=== PATIENT | female | born 1965 ===

== ENCOUNTER 2017-07-28 11:30 | Emergency (ER) | payer OTHER, SELFPAY ==
[2017-07-28 11:55] VITALS: PULSE 95
--- NOTE | 2017-07-28 12:05 | C.PDOC ---
History Of Present Illness 52 y/o female with past medical history of Arthritis ( joints, shoulder , wrist ) presents to the ED complaining of left shoulder pain, rated 10/10, since 2 days. Denies fever or any further medical complaints. PMD: Angy Rangel MD Time Seen by Provider: 07/28/17 11:56 Chief Complaint (Nursing): Upper Extremity Problem/Injury History Per: Patient History/Exam Limitations: no limitations Onset/Duration Of Symptoms: Days (x2 days) Pain Scale Rating Of: 10 Past Medical History Reviewed: Historical Data, Nursing Documentation, Vital Signs Vital Signs: Last Vital Signs Temp 97.4 F L 07/28/17 12:13 Pulse 95 H 07/28/17 12:13 Resp 14 07/28/17 12:13 BP 102/68 07/28/17 12:13 Pulse Ox 96 07/28/17 12:13 Family History: States: Unknown Family Hx - Social History Hx Tobacco Use: No Hx Alcohol Use: No Hx Substance Use: No Review Of Systems Except As Marked, All Systems Reviewed And Found Negative. (As per HPI, otherwise negative) Constitutional: Negative for: Fever Musculoskeletal: Positive for: Shoulder Pain (Left shoulder pain) Physical Exam - Physical Exam Appears: Well, No Acute Distress Skin: Normal Color, Warm, Dry Head: Atraumatic, Normacephalic Nose: Normal Neck: Normal, Supple Cardiovascular: Rhythm Regular, No Murmur Respiratory: Normal Breath Sounds, No Accessory Muscle Use Gastrointestinal/Abdominal: Normal Exam, Soft Back: Normal Inspection Extremity: Other (Pain with movement of left shoulder but no erythema noted) Neurological/Psych: Normal Speech ED Course And Treatment O2 Sat by Pulse Oximetry: 99 (RA) Pulse Ox Interpretation: Normal Medical Decision Making Medical Decision Making: Time: 12:03 Initial Impression: Shoulder pain Plan: Tylenol 975mg PO Prednisone 60mg PO Scribe Attestation: Documented by Irving Deal acting as a scribe for Perry Aly MD. Scribe Attestation: All medical record entries made by the Scribe were at my direction and personally dictated by me. I have reviewed the chart and agree that the record accurately reflects my personal performance of the history, physical exam, medical decision making, and the department course for this patient. I have also personally directed, reviewed, and agree with the discharge instructions and disposition. Disposition - Disposition Referrals: [facility] at [facility] [Outside] Disposition: HOME/ ROUTINE Disposition Time: 12:03 Condition: STABLE Additional Instructions: John, thank you for letting us take care of you today. Return to the ER if your symptoms worsen, or if any problems. Take the medication listed below as prescribed. Follow up with Dr. Rangel next week for a re-evaluation. Prescriptions: Acetaminophen [Tylenol Extra Strength] 2 tab PO Q6 PRN #30 tablet PRN Reason: Pain, Moderate (4-7) Prednisone [Deltasone] 1 tab PO TID #15 tablet Instructions: Arthritis (ED) Forms: [facility] ([place]) Print Language: PORTUGUESE - POA Present On Arrival: None - Clinical Impression Clinical Impression: Arthritis
[2017-07-28 12:13] VITALS: BP 102/68; RESP 14; TEMP 97.4
[2017-07-28 12:23] VITALS: O2SAT 99
== END 2017-07-28 12:47 | disposition home or self-care (01) ==
LOC: C.ER 11:30
DX: M13.819 Other specified arthritis, unspecified shoulder (principal)

== ENCOUNTER 2017-09-02 15:27 | Emergency (ER) | payer OTHER, SELFPAY ==
[2017-09-02 16:02] VITALS: BP 108/74; PULSE 83; RESP 18; TEMP 98; O2SAT 96
--- NOTE | 2017-09-02 17:08 | C.PDOC ---
History Of Present Illness 52-year-old female, PMHx includes RA, presents to the emergency department with complaints of multiple joint pain. States she is a clinic patient and is pending appointment with Dr Washington. States she is taking Moloxicam with minimal relief. Patient has been treated with steroids in the past, which she states helped. Denies any fevers, nausea/vomiting, chest pain, shortness of breath. No other complaints at this time. Time Seen by Provider: 09/02/17 16:10 Chief Complaint (Nursing): Lower Extremity Problem/Injury History Per: Patient History/Exam Limitations: no limitations Onset/Duration Of Symptoms: Days Past Medical History Reviewed: Historical Data, Nursing Documentation, Vital Signs Vital Signs: Last Vital Signs Temp 98 F 09/02/17 15:59 Pulse 83 09/02/17 15:59 Resp 18 09/02/17 15:59 BP 108/74 09/02/17 15:59 Pulse Ox 96 09/02/17 17:09 - Medical History PMH: Arthritis Family History: States: No Known Family Hx - Social History Hx Tobacco Use: No Hx Alcohol Use: No Hx Substance Use: No Review Of Systems Except As Marked, All Systems Reviewed And Found Negative. Respiratory: Negative for: Shortness of Breath Gastrointestinal: Negative for: Vomiting Musculoskeletal: Positive for: Other (Joint pain) Neurological: Negative for: Weakness, Numbness Physical Exam - Physical Exam Appears: Non-toxic, No Acute Distress Skin: Normal Color, Warm, Dry, No Rash Neck: Normal ROM Chest: Symmetrical Cardiovascular: Rhythm Regular, No Murmur Respiratory: Normal Breath Sounds, No Accessory Muscle Use Extremity: Normal ROM, Capillary Refill (<2 seconds), No Deformity, No Swelling , Other (Tenderness to b/l wrists, and knees. ) ED Course And Treatment O2 Sat by Pulse Oximetry: 96 (RA) Pulse Ox Interpretation: Normal Progress Note: Patient treated with Toradol and Prednisone for pain. On re- evaluation, patients pain has improved and she is in no acute distress. She will be discharged for outpatient f/u with clinic. Patients is agreeable with plan. All questions answered. Disposition Counseled Patient/Family Regarding: Studies Performed, Diagnosis, Need For Followup, Rx Given - Disposition Referrals: Fredrick Washington MD [Staff Provider] - [facility] at [facility] [Outside] Disposition: HOME/ ROUTINE Disposition Time: 17:05 Condition: STABLE Additional Instructions: FOLLOW UP WITH DR WASHINGTON SCHEDULED SEPTEMBER 19 FOLLOW UP IN THE MEDICAL CLINIC IN 1-2 DAYS USE MEDICATIONS DIRECTED RETURN TO EMERGENCY ROOM IF SYMPTOMS WORSEN SEGUIMIENTO CON DR WASHINGTON SEGN LO ESTABLECIDO EL SEGUIMIENTO EN LA CLNICA MDICA EN 1-2 HEARN USE MEDICAMENTOS SEGN LO INDICADO REGRESE AL SHARI DE EMERGENCIA SI LOS SNTOMAS EMPEORAN Prescriptions: predniSONE [predniSONE Tab] 60 mg PO DAILY #12 tab traMADol [Ultram] 50 mg PO BID PRN #12 tab PRN Reason: pain Instructions: Rheumatoid Arthritis Forms: [employer] ([place]) Print Language: MAURITIAN - Clinical Impression Clinical Impression: Rheumatoid arthritis flare - Scribe Statement The provider has reviewed the documentation as recorded by the Scribe (Desiree Guy) All medical record entries made by the Scribe were at my direction and personally dictated by me. I have reviewed the chart and agree that the record accurately reflects my personal performance of the history, physical exam, medical decision making, and the department course for this patient. I have also personally directed, reviewed, and agree with the discharge instructions and disposition.
== END 2017-09-02 17:16 | disposition home or self-care (01) ==
LOC: C.ER 15:27
DX: M06.9 Rheumatoid arthritis, unspecified (principal)
CPT/HCPCS: 96372; 99283; J1885